=== PATIENT | male | born 1985 | race Two or more races ===

== ENCOUNTER 2016-11-13 19:40 | Inpatient (IN) | payer MEDICAID ==
[2016-11-13 20:42] LABS: PH,URINE 6.5 (5.0-8.0); URINE BILIRUBIN NEGATIVE (NEGATIVE); URINE BLOOD 1+ (NEGATIVE); URINE GLUCOSE (UA) 2+ (NEGATIVE); URINE LEUKOCYTE ESTERASE NEGATIVE (NEGATIVE); URINE NITRITE NEGATIVE (NEGATIVE); URINE PROTEIN 1+ (NEGATIVE); URINE UROBILINOGEN NORMAL (0-1 mg/dl)
[2016-11-13 20:43] LABS: URINE APPEARANCE CLEAR; URINE COLOR AMBER
[2016-11-13] MEDS ORDERED: DIAZEPAM 5 MG/ML SYRINGE 2 ML ONE (21:05)
[2016-11-13] MEDS ORDERED: SODIUM CHLORIDE 0.9% 1,000 ML ONE (21:05)
[2016-11-13 21:07] LABS: URINE BACTERIA FEW; URINE EPITHELIAL CELLS 0 /hpf; URINE RBC 0-1 /hpf; URINE WBC NEG /hpf
[2016-11-13 21:10] LABS: AMPHETAMINES/METHAMPHETAMINES NEGATIVE (NEGATIVE); COCAINE NEGATIVE (NEGATIVE); MARIJUANA NEGATIVE (NEGATIVE); METHADONE NEGATIVE (NEGATIVE); OPIATES NEGATIVE (NEGATIVE); TRICYCLIC ANTIDEPRESSANTS NEGATIVE (NEGATIVE)
[2016-11-13] MEDS ORDERED: MULTIVIT W/ MINERALS 1 TAB TABLET PO ONE (21:15)
[2016-11-13] MEDS ORDERED: THIAMINE HCL 100 MG TABLET PO ONE (21:15)
[2016-11-13 21:37] LABS: ABSOLUTE NEUTROPHIL COUNT 6.4 K/mm3 (1.8-7.7); BASO % 0.4 % (0.2-1.0); EOS # 0.1 (0.0-0.5); EOS % 1.1 % (0.9-2.9); HEMATOCRIT 39.3 % (32.0-52.0); IMM NEUT% 0.4 % (0-1); LYMPH # 1.3 (1.0-4.8); LYMPH % 14.8 % (15-45); MEAN CELL VOLUME 87.5 fl (80.0-94.0); MEAN CORPUSCULAR HEMOGLOBIN 31.2 pg (27.0-31.0); MEAN CORPUSCULAR HGB CONC 35.6 g/dl (33.0-37.0); MEAN PLATELET VOLUME 10.7 fl (7.4-10.4); MONO # 0.7 (0.0-0.8); MONO % 7.8 % (4-12); NEUT % 75.5 % (43-75); PLATELET COUNT 152 K/mm3 (130-400); RED CELL DISTRIBUTION WIDTH 11.7 % (11.5-14.5)
[2016-11-13 21:46] LABS: ALB/GLOB RATIO 1.3 (>1.0); ALBUMIN 3.9 gm/dL (3.5-5.7); CALCIUM 8.8 mg/dL (8.6-10.3)
[2016-11-13 23:35] VITALS: BMI 25.6
[2016-11-13] MEDS ORDERED: CHLORDIAZEPOXIDE HCL 25 MG CAPSULE PO SCH (23:45)
[2016-11-13] MEDS ORDERED: MULTIVITAMINS 10 ML, FOLIC ACID 2 MG, MAGNESIUM SULFATE 1 G/2 ML 2 G, THIAMINE HCL 100 ... IV ONE ×5 (23:57)
[2016-11-13] MEDS ORDERED: SODIUM CHLORIDE 0.9% 100 ML IV PRN (23:57)
[2016-11-13] MEDS ORDERED: CHLORDIAZEPOXIDE HCL 10 MG CAPSULE PO PRN (23:57)
[2016-11-13] MEDS ORDERED: MENTHOL/CETYLPYRD 1 EACH LOZENGE PO PRN (23:57)
[2016-11-13] MEDS ORDERED: BLISTEX LIPSTICK 1 EACH TP PRN (23:57)
[2016-11-14] MEDS ORDERED: SODIUM CHLORIDE 0.9% 1,000 ML IV SCH (00:23)
[2016-11-14] MEDS ORDERED: POTASSIUM CHLORIDE 40 MEQ in SODIUM CHLORIDE 0.9% 500 ML IV ONE ×2 (00:23→10:30)
[2016-11-14] MEDS ORDERED: HYDROMORPHONE HCL 1 MG/ML SYRINGE IV PRN (00:31)
[2016-11-14] MEDS ORDERED: PUMP TUBING ONE ×2 (00:31→01:13)
[2016-11-14] MEDS ORDERED: ONDANSETRON 4 MG/2ML 2 ML VIAL IV PRN (00:31)
[2016-11-14] MEDS ORDERED: MULTIVITAMINS 1,000 ML IV ONE (00:34)
[2016-11-14] MEDS ORDERED: HYDROMORPHONE HCL 2 MG/ML SYRINGE ONE (00:37)
[2016-11-14] MEDS: HYDROMORPHONE HCL 2 MG/ML SYRINGE IV PRN ×2 (00:52→07:37)
[2016-11-14] MEDS: PANTOPRAZOLE SODIUM 40 MG VIAL IV SCH ×2 (00:54→23:22)
[2016-11-14] MEDS ORDERED: CHLORDIAZEPOXIDE HCL 25 MG CAPSULE PO ONE (01:12)
[2016-11-14] MEDS ORDERED: LORAZEPAM 2 MG/ML 1ML SDV IV ONE (01:25)
[2016-11-14] MEDS: LORAZEPAM 2 MG/ML 1ML SDV IV PRN ×2 (01:29→22:02)
[2016-11-14] MEDS: SODIUM CHLORIDE 0.9% 1,000 ML IV SCH ×5 (01:43→22:02)
[2016-11-14] MEDS: POTASSIUM CHLORIDE 10MEQ/100ML 100 ML IV SCH ×4 (01:43→05:07)
[2016-11-14 06:11] LABS: ABSOLUTE NEUTROPHIL COUNT 5.2 K/mm3 (1.8-7.7); BASO % 0.5 % (0.2-1.0); EOS # 0.1 (0.0-0.5); EOS % 1.5 % (0.9-2.9); HEMATOCRIT 37.8 % (32.0-52.0); HEMOGLOBIN 13.4 gm/l (14.0-18.0); IMM NEUT% 0.3 % (0-1); LYMPH # 1.7 (1.0-4.8); LYMPH % 22.8 % (15-45); MEAN CELL VOLUME 87.7 fl (80.0-94.0); MEAN CORPUSCULAR HEMOGLOBIN 31.1 pg (27.0-31.0); MEAN CORPUSCULAR HGB CONC 35.4 g/dl (33.0-37.0); MEAN PLATELET VOLUME 10.8 fl (7.4-10.4); MONO # 0.5 (0.0-0.8); MONO % 6.2 % (4-12); NEUT % 68.7 % (43-75); PLATELET COUNT 146 K/mm3 (130-400); RED CELL DISTRIBUTION WIDTH 11.6 % (11.5-14.5)
[2016-11-14 06:19] LABS: INR 0.94; PROTHROMBIN TIME 9.9 SECONDS (9.3-11.4)
[2016-11-14 06:31] LABS: ALB/GLOB RATIO 1.3 (>1.0); ALBUMIN 3.7 gm/dL (3.5-5.7); CALCIUM 8.1 mg/dL (8.6-10.3); MAGNESIUM 2.4 mg/dL (1.9-2.7)
--- NOTE | 2016-11-14 08:00 | HP ---
Thuan Chatman ADMIT DATE: 11/13/2016 CHIEF COMPLAINT: 1. Alcohol withdraw. 2. Abdominal pain. HISTORY OF PRESENT ILLNESS: Thuan is a 31-year-old male whose for the most part healthy. Apparently for the last week he has been drinking large amounts of alcohol daily. He is really unable to quantify it. He stopped about 48 hours ago and in the last day or so he has had abdominal pain, nausea, vomiting, and increasing tremors. He has also begun to see and hear things that are not really there. He saw roosters walking across the floor. He has also heard voices. He came to the emergency room for evaluation. In the emergency room, he was found to have evidence of alcoholic hepatitis, alcoholic pancreatitis as well as some alcohol withdraw. He subsequently was admitted to the hospitalist service. REVIEW OF SYSTEMS: As noted above otherwise, negative. PAST MEDICAL HISTORY: None. PAST SURGICAL HISTORY: None. ALLERGIES: None. MEDICATIONS: None. SOCIAL HISTORY: He lives alone. He works in a nursery nearby. The rest of his family is in [place]. Denies drug use. Does binge drink alcohol on occasion. No history of withdraw seizures in the past. FAMILY HISTORY: Unknown. OBJECTIVE: VITAL SIGNS: Temperature 99.8, pulse is 77, blood pressure 144/86, respirations 22, O2 sat 99% on room air. GENERAL: Well-developed, well-nourished young male. He is a bit tremulous, but otherwise in no acute distress. He is answering questions appropriately. He is alert and oriented x3. HEENT: Benign. Tympanic membranes are clear. Extraocular movements intact. Oropharynx is moist. NECK: Supple. No lymphadenopathy. LUNGS: Clear. No wheezes, rales, or rhonchi. HEART: Regular rate and rhythm. ABDOMEN: Soft, though he is quite tender to palpation in the mid epigastrium. He does have some voluntary guarding there. No rebound. EXTREMITIES: No edema. SKIN: Clear with rashes. LABORATORY: CBC with a white count of 8.5, hemoglobin 14.0, hematocrit 39.3, platelets of 152. Chemistry panel sodium 134, potassium 3.0, chloride 99, carbon dioxide 26, BUN 10, creatinine 0.8, glucose of 109, calcium 8.8, magnesium 2.0, total bilirubin 0.9. AST is elevated at 124. ALT elevated at 150. Alk phos normal at 70. Lipase is elevated at 173. PTT of 23.6. Urinalysis with 2+ glucose, 1+ protein, 1+ blood, trace ketones, negative nitrites, negative leukocyte esterase. Urine drug screen is negative. Alcohol level is 0. ASSESSMENT: 1. Alcohol abuse. 2. Alcoholic hepatitis. 3. Alcoholic pancreatitis. 4. Alcohol withdraw with tremors, hallucinations, and delusions, no seizures, however. PLAN: I have referred him to [facility] [place]. Place him on CINV protocol. Supportive care otherwise with banana bag. Aggressive IV fluids. I am going to keep him nothing by mouth. IV medication for pain and nausea as needed. We will recheck lab work in the morning. Deep venous thrombosis prophylaxis is not indicated as patient is fully ambulatory. Further care as dictated by clinic course. JOB: [id number]
[2016-11-14] MEDS: MULTIVITAMINS 1 TAB TABLET PO SCH (09:30)
[2016-11-14] MEDS: THIAMINE HCL 100 MG TABLET PO SCH (09:30)
[2016-11-14] MEDS: FOLIC ACID 1 MG TABLET PO SCH (09:30)
--- NOTE | 2016-11-14 09:58 | PDOC43 ---
- Subjective Chief Complaint: abd pain, shakes, hallucinations Feeling much better. No hallucinations/delusions since admit. Shakes resolved. Hungry. Subjective: Denies Shortness of Breath, Denies Cough, Denies Chest Pain, Denies Nausea, Denies Vomiting, Denies Fever, Denies Chills - Objective Vital Signs Temperature 97.5 F 11/14/16 07:19 Pulse Rate 76 11/14/16 07:19 Respiratory Rate 11 11/14/16 07:20 Blood Pressure 142/95 11/14/16 07:19 O2 Saturation by Pulse Oximetry 100 11/14/16 08:00 Intake and Output 11/13/16 11/14/16 11/15/16 06:59 06:59 06:59 Output Total 675 Balance -675 General: Alert, Oriented x3, Cooperative, No Acute Distress HEENT: Atraumatic, PERRLA, Mucous membr. moist/pink Lungs: Clear to Auscultation Bilaterally Abdomen: Soft, Normal Bowel Sounds, Other (Mild TTP in midepigastrum- improved since last night. No bertha/guarding.) Extremities: Normal Pulses, No Edema Laboratory Tests 11/13/16 11/14/16 21:00 05:30 WBC 7.6 Hgb 13.4 L Hct 37.8 Plt Count 146 Sodium 135 Potassium 3.3 L Chloride 101 Carbon Dioxide 28 BUN 6 L Creatinine 0.7 Phosphorus 2.1 L Magnesium 2.0 2.4 Total Bilirubin 0.9 1.2 H AST 124 H 100 H ALT 150 H 129 H Lipase 173 H 101 H Current Medications: Current meds reviewed in EMR. - Problems: Assessment/Plan (1) Alcohol withdrawal delirium Status: AcuteAssessment/Plan: Appears resolved this AM with minimal ativan tx last night. Con't CIWA protocol and supportive care. SW to see. (2) Pancreatitis, alcoholic, acute Qualifiers: Acute pancreatitis complication: unspecified Qualifier Code: (K85.20) Alcohol induced acute pancreatitis without necrosis or infection Status: AcuteAssessment/Plan: Lipase trending down and sx sl improved. Advance diet to clears. Supportive care. (3) Hepatitis, alcoholic, acute Status: AcuteAssessment/Plan: Transaminases trending down. Supportive care. Consider further outpt workup if labs don't normalize completely over next few weeks. (4) ETOH abuse Status: AcuteAssessment/Plan: Pt with h/o intermittent binge drinking. SW to see. VTE Prophylaxis: Lovenox. Disposition: Anticipate d/c in 1-2 days.
[2016-11-14] MEDS: ENOXAPARIN SODIUM 40 MG/0.4 ML SYRINGE SUB-Q SCH (10:32)
[2016-11-15] MEDS ORDERED: SODIUM CHLORIDE 0.9% FLUSH 10 ML ONE ×3 (00:01→08:04)
[2016-11-15] MEDS ORDERED: IV START KIT ONE ×3 (00:01→08:05)
[2016-11-15] MEDS: LORAZEPAM 2 MG/ML 1ML SDV IV PRN ×3 (00:22→05:22)
[2016-11-15 06:46] LABS: HEMATOCRIT 40.5 % (32.0-52.0); HEMOGLOBIN 14.5 gm/l (14.0-18.0); MEAN CELL VOLUME 88.4 fl (80.0-94.0); MEAN CORPUSCULAR HEMOGLOBIN 31.7 pg (27.0-31.0); MEAN CORPUSCULAR HGB CONC 35.8 g/dl (33.0-37.0); RED CELL DISTRIBUTION WIDTH 11.8 % (11.5-14.5)
[2016-11-15] MEDS ORDERED: OXYCODONE HCL 5 MG TABLET PO PRN (07:00)
[2016-11-15 07:04] LABS: ALB/GLOB RATIO 1.2 (>1.0); ALBUMIN 3.6 gm/dL (3.5-5.7); CALCIUM 8.6 mg/dL (8.6-10.3)
[2016-11-15] MEDS: THIAMINE HCL 100 MG TABLET PO SCH (08:17)
[2016-11-15] MEDS: MULTIVITAMINS 1 TAB TABLET PO SCH (08:17)
[2016-11-15] MEDS: FOLIC ACID 1 MG TABLET PO SCH (08:17)
[2016-11-15] MEDS: ENOXAPARIN SODIUM 40 MG/0.4 ML SYRINGE SUB-Q SCH (10:02)
[2016-11-15] MEDS: SODIUM CHLORIDE 0.9% 1,000 ML IV SCH (10:03)
[2016-11-15 14:25] VITALS: BP 118/63
--- NOTE | 2016-11-15 14:59 | PDOC5 ---
ADMIT DATE: 11/14/16 DISCHARGE DATE: 11/15/16 ADMISSION DIAGNOSES: Alcohol withdrawl Hallucinosis, attributed to alcohol Pancreatitis, attributed to alcohol PROCEDURES PERFORMED THIS HOSPITALIZATION: None CONSULTATIONS: Social Work HOSPITAL COURSE: This is a 31 year old male with hx of alcohol abuse who presented due to abdominal pain, and confusion. He had been drinking heavily the previous week, and had stopped 48 hr prior to admission. He had noted auditory and visual hallucinations, which he had not experienced before. His admission labs showed: Laboratory Tests 11/13/16 21:00 Magnesium 2.0 Total Bilirubin 0.9 AST 124 H ALT 150 H Alkaline Phosphatase 70 Lipase 173 H UDS neg, UA unrem, CBC unrem. Patient was observed overnight, with CIWA monitoring, and had resolution of his symptoms. His LFT elevation and lipase improved. Pt was eating very well and eager for DC. Social work visited with pt and felt he was stable to DC to home. Only other c/o is some occasional lower abd discomfort , occasional dysuria; UA was not remarkable. - Exam Vital Signs Temperature 98.3 F 11/15/16 14:24 Pulse Rate 85 11/15/16 14:24 Respiratory Rate 16 11/15/16 14:25 Blood Pressure 118/63 11/15/16 14:24 O2 Saturation by Pulse Oximetry 100 11/15/16 14:24 Oxygen Delivery Method Room Air Oxygen Flow Rate 0 Vital Signs Last 12 Hours Temp Pulse Resp BP Pulse Ox 11/15/16 14:25 16 11/15/16 14:24 98.3 F 85 16 118/63 100 11/15/16 07:00 99.2 F 98 18 126/82 100 11/15/16 04:00 98.2 F 76 18 137/77 98 General: Alert, Cooperative, Other (eager for DC) Lungs: Clear to Auscultation Bilaterally Cardiovascular: Regular Rate and Rhythm - Results Laboratory 11/15/16 06:30 11/15/16 06:30 11/15/16 06:30 RBC 4.58 L MCH 31.7 H BUN 5 L Estimated GFR 132 H Total Bilirubin 1.2 H AST 89 H ALT 127 H Lipase 83 H Imaging Results: none - Problems:Assessment/Plan (1) Alcohol withdrawal delirium Status: AcuteAssessment/Plan: Appears resolved. No hx of schizophrenia or other psychosis; only other times were also related to alcohol withdrawal (3 other). Appreciate SW input, encouraged DC alcohol. (2) Pancreatitis, alcoholic, acute Qualifiers: Acute pancreatitis complication: unspecified Qualifier Code: (K85.20) Alcohol induced acute pancreatitis without necrosis or infection Status: AcuteAssessment/Plan: Lipase trending down and sx sl improved. Advanced diet, tolerated well. Anticipate DC to home. (3) ETOH abuse Status: AcuteAssessment/Plan: Pt with h/o intermittent binge drinking. Appreciate SW input. (4) Hepatitis, alcoholic, acute Status: AcuteAssessment/Plan: Transaminases trending down. Supportive care. Consider further outpt workup if labs don't normalize completely over next few weeks. - Disposition: Disposition: Anticipate d/c today. - Discharge Plan Additional Instructions: Your diagnoses are: 1. Alcohol withdrawal hallucinations 2. Abdominal pain due to alcohol related pancreatitis 3. Elevated liver tests due to alcohol. Please avoid alcohol; getting help with staying away from alcohol can give you the best chance to succeed. Pancreatitis can be severe and very dangerous, please avoid alcohol because this can cause inflammation of the pancreas. If you have ongoing urine symptoms or bladder irritation, please see your doctor. We did a urine test here; it did NOT show a bladder infection; but check with your doctor. Prescriptions: Multivitamin W/ Minerals [THERAGRAN-M MULTIVIT/MINERAL (SHF)] 1 tab PO DAILY # 30 Follow-Up: Marcello Lee PA-C [Referring] - 11/22/16 8:15 am Condition: Good Disposition: Home
== END 2016-11-15 16:20 | disposition home or self-care (01) | DRG 896 ==
LOC: ED 19:40 → ICU 22:11 → OBSVTOIN 11-14 09:02 → MS 11-14 18:08 → ICU 11-15 08:00
PROVIDERS: ADMIT Family Medicine; ATTEND Family Medicine
PROC: HZ2ZZZZ Detoxification Services for Substance Abuse Treatment (ICD-10-PCS; principal; 2016-11-14)
DX: F10.231 Alcohol dependence with withdrawal delirium (principal); K85.20 Alcohol induced acute pancreatitis without necrosis or infection; F10.251 Alcohol dependence with alcohol-induced psychotic disorder with hallucinations